=== PATIENT | male | born 1945 | race Caucasian/White ===

== ENCOUNTER 2018-03-31 10:46 | Inpatient (IN) | payer MEDICARE ==
[2018-04-21] MEDS ORDERED: CEFAZOLIN/Water 2 GM/20 ML SYRINGE ONE (05:59)
[2018-04-21 06:29] LABS: INR-International Normal Ratio 0.9; PTT 30.7 SEC (22.9-36.1); Prothrombin Time 12.4 SEC (12.0-14.7)
[2018-04-21 06:30] LABS: #Basophils 0.1 thou/uL (0.0-0.2); #Eosinphils 0.1 thou/uL (0.0-0.7); #Lymphocytes 1.8 thou/uL (1.20-3.40); #Monocytes 0.5 thou/uL (0.11-0.59); #Neutrophils 4.6 thou/uL (1.40-6.50); %Basophils 0.9 % (0.0-1.0); %Eosinophils 1.6 % (0.0-10.0); %Lymphocytes 25.7 % (21.0-51.0); %Monocytes 6.4 % (0.0-10.0); %Neutrophils 65.5 % (42.0-75.0); Mean Corpuscular HGB CONC 34.4 g/dL (32.0-36.0); Mean Corpuscular Hemoglobin 31.4 pg (27.0-31.0); Mean Corpuscular Volume 91.1 fL (78.0-98.0); Mean Platelet Volume 8.4 fL (7.4-10.4); Platelet Count 137 thou/uL (130-400); RBC Distribution Width 13.5 % (11.5-14.5); Red Blood Cell (RBC) Count 4.78 mill/uL (4.70-6.10)
[2018-04-21] MEDS ORDERED: Sodium Chloride 0.9% 10 ML ONE (06:31)
[2018-04-21] MEDS ORDERED: Fentanyl 100 MCG/2 ML VIAL ONE ×4 (06:41→09:45)
[2018-04-21] MEDS ORDERED: Midazolam HCl 2 mg/2 ml Vial ONE (06:41)
[2018-04-21 06:47] LABS: Anion Gap 8 mmol/L (10-20); BUN (Urea Nitrogen) 13 mg/dL (8.4-25.7); Calc. Creatinine Clearance 113 mL/min (70-130); Calcium 9.4 mg/dL (7.8-10.44); Carbon Dioxide 29 mmol/L (23-31); Chloride 106 mmol/L (98-107); Estimated GFR-MDRD Greater than 90; Glucose 107 mg/dL (83-110); Potassium 3.9 mmol/L (3.5-5.1); Sodium 139 mmol/L (136-145)
[2018-04-21] MEDS ORDERED: HYDROmorphone 0.5 MG/0.5 ML SYRINGE ONE ×3 (08:02→10:17)
--- NOTE | 2018-04-21 08:47 | OP ---
DATE OF PROCEDURE: 04/21/2018 SURGEON: Rehan Swanson M.D. [employer] SERVICE TECHNICIAN: Owen Araujo PA-C PROCEDURE: L2-L4 posterior laminectomies, posterolateral arthrodesis, pedicle screw instrumentation, demineralized bone matrix, local morselized autograft, pedicle screw instrumentation L2-4. PROCEDURE IN DETAIL: The patient was brought to the operating room intubated. He was rolled in pron e position on gel-filled chest rolls. The previous incision was reopened and the L2-L4 levels were i dentified. We explored the spinal fusion from L4 through the sacrum and it seemed to be solid. We n ext performed a modest lateral recess decompression at L2-3 and L3-4. Next, we placed pedicle screws at L2, L3 and L4 bilaterally using lateral fluoroscopic guidance and the positioning was confirmed w ith rotational x-ray. George was secured between the screws, connected by nuts which were final tighten ed. The wound was then extensively irrigated, immaculate hemostasis was secured. A combination of d emineralized bone for local morselized autograft was laid over the laminar and posterolateral surface s for the purpose of arthrodesis. Vancomycin powder was applied and the wound was then closed in sameer tomic layers.
[2018-04-21] MEDS ORDERED: Ondansetron HCl/PF 4 MG/2 ML Vial IVP PRN ×2 (09:07→11:50)
[2018-04-21] MEDS ORDERED: Promethazine HCl 25 MG/ML VIAL IM PRN ×2 (09:07→11:48)
[2018-04-21] MEDS ORDERED: Promethazine HCl 25 MG/ML VIAL SLOW IVP PRN (09:07)
[2018-04-21] MEDS ORDERED: Morphine 4 MG/ML VIAL ONE (10:05)
[2018-04-21] MEDS ORDERED: Ondansetron HCl/PF 4 MG/2 ML Vial ONE (11:16)
[2018-04-21] MEDS ORDERED: ePHEDrine/0.9% NaCl/PF SYRINGE 50 mg/10 ml ONE (11:16)
[2018-04-21] MEDS ORDERED: PHENYLEPHRINE-NS 100 MCG/ML 10 ML SYRINGE ONE (11:16)
[2018-04-21] MEDS ORDERED: Lidocaine 1% PF 5 ML VIAL ONE (11:16)
[2018-04-21] MEDS ORDERED: Ketorolac Tromethamine 30 MG/ML VIAL ONE (11:16)
[2018-04-21] MEDS ORDERED: PROPOFOL 200 MG/20 ML VIAL ONE (11:16)
[2018-04-21] MEDS ORDERED: HYDROcodone/Acetaminophen 10/325 mg Tablet PO PRN (11:48)
[2018-04-21] MEDS ORDERED: diphenhydrAMINE 50 MG/ML VIAL IVP PRN (11:48)
[2018-04-21] MEDS ORDERED: Milk Of Magnesia 30 ML UDCUP PO PRN (11:48)
[2018-04-21] MEDS ORDERED: diphenhydrAMINE 25 MG CAP PO PRN (11:48)
[2018-04-21] MEDS ORDERED: Promethazine HCl 12.5 MG SUPP PR PRN (11:48)
[2018-04-21] MEDS ORDERED: traMADol HCl 50 MG TAB PO PRN (11:48)
[2018-04-21] MEDS ORDERED: Promethazine 25 MG TAB PO PRN (11:48)
[2018-04-21] MEDS ORDERED: Mag-Al 1200 mg/1200 mg/30 ML UDCUP PO PRN (11:48)
[2018-04-21] MEDS ORDERED: Morphine 4 MG/ML VIAL SLOW IVP PRN (11:54)
[2018-04-21] MEDS: tiZANidine HCl 4 MG TAB PO PRN ×2 (12:16→18:33)
[2018-04-21] MEDS: Sodium Chloride 0.9% 1,000 ML IV SCH (12:17)
[2018-04-21] MEDS: HYDROcodone/Acetaminophen 10/325 mg Tablet PO PRN ×3 (12:54→21:44)
[2018-04-21] MEDS ORDERED: CEFAZOLIN/Water 2 GM/20 ML SYRINGE SLOW IVP SCH (14:00)
[2018-04-21] MEDS: CEFAZOLIN/Water 2 GM/20 ML SYRINGE SLOW IVP SCH (16:27)
[2018-04-21] MEDS ORDERED: hydrALAZINE 20 MG/ML VIAL SLOW IVP PRN (16:40)
--- NOTE | 2018-04-21 17:11 | EKG ---
Test Reason : PREOP Blood Pressure : / mmHG Vent. Rate : 057 BPM Atrial Rate : 057 BPM P-R Int : 236 ms QRS Dur : 102 ms QT Int : 438 ms P-R-T Axes : 072 010 060 degrees QTc Int : 426 ms Sinus bradycardia with 1st degree A-V block Otherwise normal ECG No previous ECGs available Confirmed by DR. Ravin OSULLIVAN MD ([id number]) on 04/21/2018 5:11:33 PM Referred By: WANDER Confirmed By:DR. Ravin OSULLIVAN MD
[2018-04-21] MEDS: Tamsulosin HCl 0.4 MG CAP PO SCH (21:45)
[2018-04-21] MEDS: Atorvastatin Calcium 20 MG TAB PO SCH (21:45)
[2018-04-21] MEDS: Amlodipine 5 MG TAB PO SCH (21:45)
[2018-04-21] MEDS: Metoprolol Tartrate 25 MG TAB PO SCH (21:46)
--- NOTE | 2018-04-21 22:32 | PDOC.PN ---
- Subjective Encounter Start Date: 04/21/18 Encounter Start Time: 16:00 Patient seen and examined for med mngt. No CP/SOB. Pain controlled. No overnight events - Objective MAR Reviewed: Yes Vital Signs & Weight: Vital Signs (12 hours) Temp Pulse Resp BP BP Pulse Ox 04/21/18 21:45 78 128/81 04/21/18 19:38 98.7 F 78 16 128/81 91 L 04/21/18 16:30 97.8 F 74 18 149/83 H 94 L 04/21/18 15:00 97.5 F L 18 04/21/18 11:20 97.5 F L 58 L 18 163/79 H 96 Weight Weight 7.76 oz I&O: 04/20/18 04/21/18 04/22/18 06:59 06:59 06:59 Intake Total 1515 Balance 1515 Result Diagrams: 04/21/18 06:05 04/21/18 06:05 EKG Reviewed by me: Yes (SB with 1 deg AV block) Phys Exam - Physical Examination Constitutional: NAD Respiratory: no wheezing, no rhonchi Cardiovascular: RRR, no rub Gastrointestinal: soft, non-tender, positive bowel sounds Musculoskeletal: no edema Neurological: moves all 4 limbs Dx/Plan - Plan plan discussed w/ family, DVT proph w/SCDs IMPRESSION: 1. CAD 2. HTN 3. HLD 4. Par Afib 5. Aortic stenosis 6. BPH 7. GERD 8. h/o CVA 12/2015 PLAN: ASA/Plavix on hold per NSG Cont Amlodipine/Losartan/HCTZ/Metoprolol Cont Flomax Add PRN HTN meds Full code. DPOA - spouse Will follow. Thank you for this consultation. Review of Systems - Review of Systems Respiratory: negative: Cough, Dry, Shortness of Breath, Hemoptysis, SOB with Excertion, Pleuritic Pain, Sputum, Wheezing Cardiovascular: negative: chest pain, palpitations, orthopnea, paroxysmal nocturnal dyspnea, edema, light headedness, other Gastrointestinal: negative: Nausea, Vomiting, Abdominal Pain, Diarrhea, Constipation, Melena, Hematochezia, Other - Medications/Allergies Allergies/Adverse Reactions: Allergies Allergy/AdvReac Type Severity Reaction Status Date / Time No Known Allergies Allergy Verified 04/21/18 14:37 Medications: Current Medications Hydrocodone Bitart/Acetaminophen ([place] 10/325) 1 tab PO Q4H PRN PRN Reason: PAIN (1-3) Hydrocodone Bitart/Acetaminophen ([place] 10/325) 2 tab PO Q4H PRN PRN Reason: PAIN (4-6) Last Admin: 04/21/18 21:44 Dose: 2 tab Al Hydroxide/Mg Hydroxide (Maalox) 30 ml PO Q4H PRN PRN Reason: Heartburn or Indigestion Amlodipine Besylate (Norvasc) 5 mg PO QPM [facility] Last Admin: 04/21/18 21:45 Dose: 5 mg Atorvastatin Calcium (Lipitor) 20 mg PO QPM [facility] Last Admin: 04/21/18 21:45 Dose: 20 mg Cefazolin Sodium (Ancef) 2 gm SLOW IVP 0800,1600,2359 [facility] Stop: 04/22/18 00:00 Last Admin: 04/21/18 16:27 Dose: 2 gm Diphenhydramine HCl (Benadryl) 25 mg PO Q6H PRN PRN Reason: Itching Diphenhydramine HCl (Benadryl) 25 mg IVP Q6H PRN PRN Reason: Itching HCTZ/Losartan Potassium (Hyzaar 50/12.5) 1 tab PO QAM [facility] Hydralazine HCl (Apresoline) 10 mg SLOW IVP Q4H PRN PRN Reason: SBP Greater Than 180 Sodium Chloride (Normal Saline 0.9%) 1,000 mls @ 75 mls/hr IV .[id number] [facility] Last Admin: 04/21/18 12:17 Dose: 1,000 mls Magnesium Hydroxide (Milk Of Magnesium) 30 ml PO Q12H PRN PRN Reason: Constipation Metoprolol Tartrate (Lopressor) 25 mg PO BID [facility] Last Admin: 04/21/18 21:46 Dose: 25 mg Montelukast Sodium (Singulair) 10 mg PO QAM [facility] Morphine Sulfate (Morphine) 2 mg SLOW IVP Q1H PRN PRN Reason: Moderate Breakthrough Pain Morphine Sulfate (Morphine) 4 mg SLOW IVP Q1H PRN PRN Reason: SEVERE BREAKTHROUGH PAIN Multivitamins/Zinc (Stress 600 With Zinc) 1 tab PO QAM [facility] Ondansetron HCl (Zofran) 4 mg IVP Q8H PRN PRN Reason: Nausea/Vomiting Promethazine HCl (Phenergan) 12.5 mg IM Q4H PRN PRN Reason: Nausea/Vomiting Promethazine HCl (Phenergan) 12.5 mg PO Q4H PRN PRN Reason: Nausea/Vomiting Promethazine HCl (Phenergan Suppository) 12.5 mg IN Q4H PRN PRN Reason: Nausea/Vomiting Sodium Chloride (Flush - Normal Saline) 10 ml IVF PRN PRN PRN Reason: Saline Flush Tamsulosin HCl (Flomax) 0.4 mg PO QPM DEANN Last Admin: 04/21/18 21:45 Dose: 0.4 mg Thiamine HCl (Thiamine) 125 mg PO QAM DEANN Tizanidine HCl (Zanaflex) 4 mg PO Q6H PRN PRN Reason: MUSCLE SPASM Last Admin: 04/21/18 18:33 Dose: 4 mg Tramadol HCl (Ultram) 50 mg PO Q6H PRN PRN Reason: PAIN (1-3) Tramadol HCl (Ultram) 100 mg PO Q6H PRN PRN Reason: PAIN (4-6)
[2018-04-22] MEDS: traMADol HCl 50 MG TAB PO PRN ×2 (00:09→16:33)
[2018-04-22] MEDS: CEFAZOLIN/Water 2 GM/20 ML SYRINGE SLOW IVP SCH (00:10)
[2018-04-22] MEDS: Sodium Chloride 0.9% 1,000 ML IV SCH ×2 (03:30→14:38)
[2018-04-22] MEDS: HYDROcodone/Acetaminophen 10/325 mg Tablet PO PRN ×5 (06:33→23:20)
[2018-04-22] MEDS: Metoprolol Tartrate 25 MG TAB PO SCH ×2 (07:37→21:02)
[2018-04-22] MEDS: Stress 600 With Zinc 1 TAB PO SCH (07:37)
[2018-04-22] MEDS: Montelukast Sodium 10 mg Tablet PO SCH (07:38)
[2018-04-22] MEDS: tiZANidine HCl 4 MG TAB PO PRN ×3 (07:38→21:02)
[2018-04-22] MEDS ORDERED: Clopidogrel Bisulfate 75 MG TAB PO SCH (09:00)
[2018-04-22] MEDS: Amlodipine 5 MG TAB PO SCH (21:02)
[2018-04-22] MEDS: Atorvastatin Calcium 20 MG TAB PO SCH (21:02)
[2018-04-22] MEDS: Tamsulosin HCl 0.4 MG CAP PO SCH (21:02)
[2018-04-22 22:05] VITALS: BMI 23.2
[2018-04-23] MEDS: HYDROcodone/Acetaminophen 10/325 mg Tablet PO PRN (06:27)
[2018-04-23 07:42] VITALS: BP 142/79; TEMP 98.5
[2018-04-23] MEDS: Sodium Chloride 0.9% 1,000 ML IV SCH (08:18)
[2018-04-23] MEDS: Stress 600 With Zinc 1 TAB PO SCH (08:19)
[2018-04-23] MEDS: tiZANidine HCl 4 MG TAB PO PRN (08:22)
[2018-04-23] MEDS: Metoprolol Tartrate 25 MG TAB PO SCH (08:22)
[2018-04-23] MEDS: Montelukast Sodium 10 mg Tablet PO SCH (08:23)
== END 2018-04-23 09:10 | disposition home or self-care (01) | DRG 460 ==
LOC: SURG A 04-21 05:41 → SJJU 04-21 11:17
PROVIDERS: ADMIT Neurological Surgery; ATTEND Neurological Surgery
PROC: 0SG1071 Fusion of 2 or more Lumbar Vertebral Joints with Autologous Tissue Substitute, Posterior Approach, Posterior Column, Open Approach (ICD-10-PCS; principal; 2018-04-21)
PROC: 01NB0ZZ Release Lumbar Nerve, Open Approach (ICD-10-PCS; 2018-04-21)
DX: M48.061 Spinal stenosis, lumbar region without neurogenic claudication (principal); I10 Essential (primary) hypertension; E78.5 Hyperlipidemia, unspecified; I48.0 Paroxysmal atrial fibrillation; I35.0 Nonrheumatic aortic (valve) stenosis; K21.9 Gastro-esophageal reflux disease without esophagitis; N40.0 Benign prostatic hyperplasia without lower urinary tract symptoms; Z86.73 Personal history of transient ischemic attack (TIA), and cerebral infarction without residual deficits
CPT/HCPCS: 76001; 80048; 85025; 85610; 85730; 93005; 93010; A4216; C1713; C1768; G8978-GP-CK; G8979-GP-CJ; G8987-GO-CL; G8988-GO-CI; J1170; J1885; J2001; J2250; J2270; J2405; J2704; J3010; J3370; J3490

== ENCOUNTER 2018-05-06 15:23 | Outpatient (CLI) | payer MEDICARE ==
--- NOTE | 2018-05-06 16:25 | RAD ---
2-3 VIEW LUMBAR SPINE RADIOGRAPH SERIES: 05/06/18 INDICATIONS: Lumbar degenerative disc disease. FINDINGS: There is multilevel postoperative fusion with bilateral pedicle screws and vertical interconnecting r ods spanning the L2, 3 and 4 levels. No obvious hardware complication. Moderate multilevel degenerati ve change present. There is mild right convexity curvature of the lumbar spine. Overlying skin staple s are seen at the midline. No compression fracture or significant subluxation. IMPRESSION: 1. Postoperative lumbar spine with multilevel degenerative change. 2. No compression fracture or significant subluxation. POS: [facility]
== END 2018-05-06 15:24 | disposition home or self-care (01) ==
LOC: TBSIIMAG 15:23
PROVIDERS: ATTEND Physician Assistant
DX: M51.36 Other intervertebral disc degeneration, lumbar region (principal); M47.896 Other spondylosis, lumbar region; Z98.890 Other specified postprocedural states
CPT/HCPCS: 72100

== ENCOUNTER 2018-06-26 15:18 | Outpatient (CLI) | payer MEDICARE ==
--- NOTE | 2018-06-26 16:36 | RAD ---
TWO VIEWS LUMBAR SPINE: Date: 06-26-18 History: Intervertebral disc degenerative lumbar spine. Follow up back surgery which was performed 8 weeks ago. Comparison: 05-06-18 FINDINGS: Post-surgical changes lumbar spine are again seen with evidence of posterior fusion with bipedicular screws and posterior rods transfixing L2-3 and L3-4 levels. No hardware complication is seen. Multile cha degenerative changes are again seen in the lumbar spine. There is trace grade I anterolisthesis o f L3 on L4. There is partial sacralization of the left aspect of the L5 vertebral body. Overlying ski n aminta are no longer seen. Vascular calcifications are again noted. No other interval change. IMPRESSION: Post-operative and degenerative changes of the lumbar spine. There is trace grade I anterolisthesis o f L3 on L4. POS: [facility]
== END 2018-06-26 15:19 | disposition home or self-care (01) ==
LOC: TBSIIMAG 15:18
PROVIDERS: ATTEND Neurological Surgery
DX: M51.36 Other intervertebral disc degeneration, lumbar region (principal); M47.896 Other spondylosis, lumbar region; M43.16 Spondylolisthesis, lumbar region; Z98.890 Other specified postprocedural states
CPT/HCPCS: 72100